=== PATIENT | male | born 1980 | race Caucasian/White ===

== ENCOUNTER → 2018-10-04 | Outpatient (CLI) | payer BC ==
[~2018-10-04] MED LIST: IOHEXOL 240 MG/ML 50ML VIAL. ONE; IOHEXOL 300 MG/ML 75 ML VIAL. IV ONE
--- NOTE | 2018-10-04 15:08 | RAD ---
EXAM: CT Abdomen and Pelvis with IV contrast CLINICAL HISTORY: Left lower quadrant pain. COMPARISON: none TECHNIQUE: Helical CT of the abdomen and pelvis was performed following the administration of intravenous contrast. Axial, coronal and sagittal reformatted images were generated. PQRS compliance statement - One or more of the following individualized dose reduction techniques were utilized for this study: 1. Automated exposure control 2. Adjustment of the mA and/or kV according to patient size 3. Use of iterative reconstruction technique FINDINGS: Lower chest: Lung bases are clear. Abdomen and Pelvis: No focal liver lesion. Gallbladder is normal. No biliary ductal dilatation. Spleen is unremarkable. Adrenal glands and pancreas are unremarkable. Symmetric nephrograms. No focal renal lesion. No hydronephrosis. Appendix is normal. No small or large bowel dilatation. Moderate colonic stool content. Colonic diverticula are seen. Adjacent to this a few diverticula within the left midabdomen there is mild fascial thickening, consistent with acute diverticulitis. No free or loculated fluid collection is seen. No abdominal or pelvic ascites. No abdominal or pelvic lymphadenopathy. Bilateral fat-containing inguinal hernias are seen. Bones: Multilevel Schmorl's nodes are seen. Visualized osseous structures are otherwise grossly unremarkable. IMPRESSION: 1. Fat infiltration is seen about several mid descending colonic diverticula consistent with acute diverticulitis. No associated free or loculated fluid collection is seen. Electronically signed by: Micah Xiong MD (10/04/2018 3:05 PM) [facility]
== END | disposition home or self-care (01) ==
LOC: CT 14:28
PROVIDERS: ATTEND Family Medicine
DX: K76.0 Fatty (change of) liver, not elsewhere classified (principal); K57.30 Diverticulosis of large intestine without perforation or abscess without bleeding; K40.20 Bilateral inguinal hernia, without obstruction or gangrene, not specified as recurrent
CPT/HCPCS: 74177; Q9967